=== PATIENT | female | born 1990 | race Caucasian/White ===

== ENCOUNTER → 2019-05-12 | Emergency (ER) | payer BC ==
[~2019-05-12] VITALS: Ht 157.5 cm; Wt 63.5 kg
[~2019-05-12] MED LIST: CYMBALTA60 MG ORAL; LIBRIUM25 MG ORAL; PROPRANOLOL HCL20 MG ORAL; SEROQUEL100 MG ORAL; chlordiazePOXIDE 25mg Cap ORAL ONE
--- NOTE | 2019-05-12 10:05 | NUR ---
ED Nurse Note: Patient walked into ED c/o feeling anxious, patient reports she has been drinking alcohol for almost 1 month. patient reports she was not able to take her anxiety medication b/c her psychiatrist is no longer prescribing, last time she drank was last night. patient reports she has been drinking 1 bottle of wine per day patient is alert awake x4 ambulatory steady gait, breathing unlabored and even, placed patient on hospital gown and placed patient on the monitor.
[2019-05-12 10:20] VITALS: BP 128/91
[2019-05-12 11:07] VITALS: BP 128/91
--- NOTE | 2019-05-12 11:08 | NUR ---
ER DISCHARGE NOTE: Patient is cleared to be discharged per ERMD DR FRIEND, pt is aox4, on room air, with stable vital signs. pt was given dc and prescription instructions, pt was able to verbalize understanding, pt id band removed without complications. pt is able to ambulate with steady gait. pt took all belongings.
--- NOTE | 2019-05-12 11:26 | Emergency Room Report ---
History of Present Illness General Chief Complaint: General Complaint Source: Patient Present Illness HPI 28-year-old female presents ED for evaluation. States she is been drinking alcohol every day and states she might be going through withdrawals. Drinks every day for the last month. Last drink was last night. Feels shaky and sweating. Denies nausea or vomiting. Denies any abdominal pain. Does have history of anxiety and takes propranolol. Used to take gabapentin but her psychiatrist stopped the medication. Denies chest pain or shortness of breath. No other aggravating relieving factors. Denies any other associated symptoms Allergies: Coded Allergies: No Known Allergies (Unverified , 05/12/19) Patient History Past Medical History: psych hx Past Surgical History: none Pertinent Family History: none Social History: Reports: alcohol use; Denies: smoking, drug use Last Menstrual Period: controll Now: No Immunizations: UTD Reviewed Nursing Documentation: PMH: Agreed; PSxH: Agreed Nursing Documentation-PMH Past Medical History: No History, Except For Hx Hypertension: Yes History Of Psychiatric Problem: Yes - depression anxiety Review of Systems All Other Systems: negative except mentioned in HPI Physical Exam Vital Signs Date Time Temp Pulse Resp B/P (MAP) Pulse Ox O2 Delivery O2 Flow Rate FiO2 05/12/19 10:00 97.9 85 19 134/101 (112) 99 Room Air Sp02 EP Interpretation: reviewed, normal General Appearance: no apparent distress, alert, GCS 15, non-toxic Head: normocephalic, atraumatic Eyes: bilateral eye normal inspection, bilateral eye PERRL ENT: hearing grossly normal, normal pharynx, no angioedema, normal voice Neck: full range of motion, supple/symm/no masses Respiratory: chest non-tender, lungs clear, normal breath sounds, speaking full sentences Cardiovascular #1: regular rate, rhythm, no edema Cardiovascular #2: 2+ carotid (R), 2+ carotid (L), 2+ radial (R), 2+ radial (L) , 2+ dorsalis pedis (R), 2+ dorsalis pedis (L) Gastrointestinal: normal bowel sounds, non tender, soft, non-distended, no guarding, no rebound Rectal: deferred Genitourinary: normal inspection, no CVA tenderness Musculoskeletal: back normal, gait/station normal, normal range of motion, non- tender Neurologic: alert, oriented x3, responsive, motor strength/tone normal, sensory intact, speech normal Psychiatric: judgement/insight normal, memory normal, no suicidal/homicidal ideation, anxious Reflexes: 3+ bicep (R), 3+ bicep (L), 3+ tricep (R), 3+ tricep (L), 3+ knee (R) , 3+ knee (L) Lymphatic: no adenopathy Medical Decision Making Diagnostic Impression: Primary Impression: Alcohol withdrawal Qualified Codes: F10.239 - Alcohol dependence with withdrawal, unspecified ER Course Hospital Course 28 yo F states she is in withdrawal. Chronic history of alcohol use Differential diagnoses include: Alcohol intoxication, drug abuse, opioid withdrawal, alcohol withdrawal, dehydration, drug seeking behavior Clinical course Patient placed on stretcher. On monitoring tech. After initial history, exam reveals female in no acute distress. Is awake alert oriented x3. Answering questions appropriately. Not tremulous. Vitals stable. Not tachycardic. Not disoriented. No signs of DTs. discussed findings with patient. We will order Librium here and will discharge with Librium. Patient should follow-up with her psychiatrist regarding adjustment of her medications. No evidence of SI or HI. No danger to self or others i. I feel this is a highly complex case requiring extensive working including EKG/Rhythm strip, Xray/CT/US, Blood/urine lab work, repeat exams while in ED, and administration of strong opiates/narcotics for pain control, admission to hospital or close patient follow up. Diagnosis - alcohol withdrawal Stable and discharged to home with prescription for Librium. Followup with PMD/ psych. Return to ED if symptoms recur or worsen Last Vital Signs Date Time Temp Pulse Resp B/P (MAP) Pulse Ox O2 Delivery O2 Flow Rate FiO2 05/12/19 11:07 97.9 87 13 128/91 99 Room Air Status: improved Disposition: HOME, SELF-CARE Condition: Stable Scripts Chlordiazepoxide (Chlordiazepoxide HCl) 25 Mg Capsule 25 MG ORAL THREE TIMES A DAY, #15 CAP 0 Refills Prov: Jersey Boston MD 05/12/19 Referrals: NOT CHOSEN IPA/,REFERRING (PCP) [facility] Alpesh Pederson [facility] Patient Instructions: Alcohol Withdrawal Jersey Boston MD May 12, 2019 11:26
== END | disposition home or self-care (01) ==
LOC: EMR 10:50
DX: F10.239 Alcohol dependence with withdrawal, unspecified (principal); F41.9 Anxiety disorder, unspecified; F32.9 Major depressive disorder, single episode, unspecified; I10 Essential (primary) hypertension
CPT/HCPCS: 99282